=== PATIENT | male | born 1970 | race Caucasian/White ===

== ENCOUNTER 2016-12-04 16:39 | Inpatient (IN) | payer OTHER ==
[~2016-12-04] VITALS: Ht 175.3 cm; Wt 98.3 kg
[~2016-12-04 16:39] MED LIST: ASPI81 PO; INSNOV SQ
[2016-12-04] MEDS ORDERED: METO25 PO (17:04)
[2016-12-04] MEDS ORDERED: NORT10 PO (17:04)
[2016-12-04] MEDS ORDERED: ATOR40TA28 PO (17:04)
[2016-12-04] MEDS ORDERED: MIRALAX PO (17:04)
[2016-12-04] MEDS ORDERED: ACET-1953 PO (17:04)
[2016-12-04] MEDS ORDERED: DOCU100C19 PO (17:04)
[2016-12-04] MEDS ORDERED: HERB1CAP2 PO (17:04)
[2016-12-04] MEDS ORDERED: INSNOV SQ (17:04)
[2016-12-04] MEDS ORDERED: INSLAN SQ (17:04)
[2016-12-04] MEDS ORDERED: SODIUM CHLORIDE 0.9% 1,000 ML IV ONE ×2 (18:07→21:15)
[2016-12-04 18:16] LABS: BASOPHILS % (AUTO) 0.6 % (0.0-2.0); EOSINOPHILS % (AUTO) 1.1 % (1.0-6.0); HEMATOCRIT 42.3 % (41-53); LYMPHOCYTES # (AUTO) 1.7 K/uL (1.0-4.8); LYMPHOCYTES % (AUTO) 13.4 % (22.0-44.0); MEAN CORPUSCULAR HEMOGLOBIN 28.8 pg (26.0-34.0); MEAN CORPUSCULAR HGB CONC 33.1 G/dL (31.0-37.0); MEAN CORPUSCULAR VOLUME 87 fL (80-100); MONOCYTES # (AUTO) 0.9 K/uL (0.1-1.0); NEUTROPHILS # (AUTO) 9.8 K/uL (1.8-7.7); NEUTROPHILS % (AUTO) 77.9 % (40.0-70.0); PLATELET COUNT (AUTO) 222 K/uL (150-450); RED BLOOD CELL COUNT(AUTO) 4.87 MIL/uL (4.50-5.90); RED CELL DISTRIBUTION WIDTH 12.4 % (11.5-14.5); WHITE BLOOD COUNT (AUTO) 12.6 K/uL (4.5-11.0)
[2016-12-04 18:33] LABS: ALBUMIN 2.8 g/dL (3.4-5.0); BILIRUBIN,TOTAL 0.4 mg/dL (0.1-1.0); CALCIUM, TOTAL 8.8 mg/dL (8.8-10.5); CREATININE 1.64 mg/dL (0.60-1.30); POTASSIUM 4.4 mmol/L (3.5-5.1); TOTAL PROTEIN, SERUM 7.2 g/dL (6.4-8.2)
[2016-12-04] MEDS ORDERED: INSULIN REGULAR, HUMAN 100 UNITS/ML IVP ONE (19:15)
[2016-12-04] MEDS ORDERED: MAGNESIUM HYDROXIDE SUSPENSION 30 ML UDCUP PO PRN (21:15)
[2016-12-04] MEDS ORDERED: DEXTROSE 50%-WATER 25 GM/50 ML SYRINGE IVP PRN (21:15)
[2016-12-04] MEDS ORDERED: OxyCODONE HCL/ACETAMINOPHEN 5-325 MG TABLET PO PRN (21:15)
[2016-12-04 21:43] LABS: GLUCOSE,POINT OF CARE 299 MG/DL (70-110)
[2016-12-04] MEDS ORDERED: VANCOMYCIN HCL 1 GM/D5% WATER 200 ML IV ONE (22:00)
[2016-12-04 22:27] VITALS: BP 137/94
[2016-12-04] MEDS: INSULIN DETEMIR 100 UNITS/ML SQ SCH (22:45)
[2016-12-04] MEDS: MORPHINE SULFATE 2 MG/ML SYRINGE IVP PRN (22:46)
[2016-12-05] MEDS ORDERED: VANCOMYCIN HCL 1 GM/D5% WATER 200 ML IV ONE
[2016-12-05] MEDS: PIPERACILLIN/TAZO 3.375 GM/D5W 50 ML IV SCH ×5 (00:36→23:46)
[2016-12-05] MEDS: HEPARIN SODIUM,PORCINE 5,000 UNITS/ML VIAL SQ SCH ×4 (00:37→23:46)
[2016-12-05 04:53] VITALS: BP 142/87
[2016-12-05] MEDS: MORPHINE SULFATE 2 MG/ML SYRINGE IVP PRN (05:17)
[2016-12-05] MEDS: INSULIN ASPART 100 UNITS/ML SQ PRN ×4 (05:19→21:22)
[2016-12-05 06:42] LABS: BASOPHILS % (AUTO) 0.2 % (0.0-2.0); EOSINOPHILS % (AUTO) 1.1 % (1.0-6.0); HEMATOCRIT 39.4 % (41-53); HEMOGLOBIN 12.9 g/dL (13.5-17.5); LYMPHOCYTES # (AUTO) 1.5 K/uL (1.0-4.8); LYMPHOCYTES % (AUTO) 9.4 % (22.0-44.0); MEAN CORPUSCULAR HEMOGLOBIN 29.1 pg (26.0-34.0); MEAN CORPUSCULAR HGB CONC 32.8 G/dL (31.0-37.0); MEAN CORPUSCULAR VOLUME 89 fL (80-100); MONOCYTES # (AUTO) 1.1 K/uL (0.1-1.0); NEUTROPHILS # (AUTO) 12.9 K/uL (1.8-7.7); NEUTROPHILS % (AUTO) 82.3 % (40.0-70.0); PLATELET COUNT (AUTO) 198 K/uL (150-450); RED BLOOD CELL COUNT(AUTO) 4.44 MIL/uL (4.50-5.90); RED CELL DISTRIBUTION WIDTH 12.9 % (11.5-14.5); WHITE BLOOD COUNT (AUTO) 15.7 K/uL (4.5-11.0)
[2016-12-05 06:50] LABS: CALCIUM, TOTAL 8.2 mg/dL (8.8-10.5); CREATININE 1.56 mg/dL (0.60-1.30); POTASSIUM 4.8 mmol/L (3.5-5.1)
[2016-12-05 06:52] LABS: GLUCOSE,POINT OF CARE 437 MG/DL (70-110)
[2016-12-05 07:41] VITALS: BP 140/87
[2016-12-05] MEDS ORDERED: VANCOMYCIN HCL 1.5 GM in DEXTROSE 5%-WATER 250 ML IV SCH (08:00)
[2016-12-05] MEDS: PANTOPRAZOLE SODIUM 40 MG DR TABLET PO SCH (08:07)
[2016-12-05] MEDS: DOCUSATE SODIUM 100 MG CAPSULE PO SCH ×2 (08:07→20:42)
[2016-12-05 08:28] LABS: HEMOGLOBIN A1C 11.6 % (4.5-6.2)
[2016-12-05 08:32] LABS: ADD UA MICROSCOPIC YES; APPEARANCE,URINE CLEAR (CLEAR); GLUCOSE, URINE (UA) 500 mg/dL (NEGATIVE); KETONES,URINE TRACE mg/dL (NEGATIVE); LEUKOCYTE ESTERASE ,URINE NEGATIVE (NEGATIVE); OCCULT BLOOD,URINE MODERATE (NEGATIVE); PROTEIN,URINE SEE CONFIRM (NEGATIVE)
[2016-12-05 08:38] LABS: SULFOSALICYLIC ACID,URINE 3+ (Negative)
[2016-12-05 08:40] LABS: WBC,URINE None Seen /HPF (0-5)
[2016-12-05 08:42] LABS: COARSE GRANULAR CASTS,URINE 0-2 /LPF (None Seen); FINE GRANULAR CASTS,URINE 0-2 /LPF (None Seen); HYALINE CASTS, URINE 0-2 /LPF (None Seen)
[2016-12-05 11:54] VITALS: BP 121/84
[2016-12-05] MEDS: NYSTATIN/TRIAMCINOLONE 15 GM CREAM TP SCH (13:19)
[2016-12-05] MEDS: SILVER SULFADIAZINE 1% 25 GM CREAM TP SCH (13:19)
[2016-12-05] MEDS: ACETAMINOPHEN 325 MG TABLET PO PRN ×2 (13:30→20:42)
[2016-12-05 16:07] VITALS: BP 156/95
[2016-12-05] MEDS ORDERED: MAGNESIUM CITRATE 300 ML ORAL SOLUTION PO PRN (18:45)
[2016-12-05 18:56] LABS: GLUCOSE COMMENT 1 Received Meds; GLUCOSE,POINT OF CARE 310 MG/DL (70-110)
[2016-12-05 20:15] VITALS: BP 144/83
[2016-12-05] MEDS: VANCOMYCIN HCL 1.25 GM in DEXTROSE 5%-WATER 250 ML IV SCH (20:42)
[2016-12-05 21:22] LABS: GLUCOSE COMMENT 1 Received Meds; GLUCOSE,POINT OF CARE 289 MG/DL (70-110)
[2016-12-05] MEDS: INSULIN DETEMIR 100 UNITS/ML SQ SCH (21:22)
[2016-12-05 21:26] LABS: GLUCOSE,POINT OF CARE 338 MG/DL (70-110)
[2016-12-06] VITALS (7 sets, daily range): BP systolic 127–160; BP diastolic 79–98
[2016-12-06] MEDS: METOPROLOL TARTRATE 25 MG TABLET PO SCH ×3 (01:53→15:35)
[2016-12-06] MEDS: SODIUM CHLORIDE 0.9% 1,000 ML IV SCH (01:54)
[2016-12-06] MEDS: PIPERACILLIN/TAZO 3.375 GM/D5W 50 ML IV SCH ×3 (05:06→17:37)
[2016-12-06 05:57] LABS: GLUCOSE,POINT OF CARE 258 MG/DL (70-110)
[2016-12-06 06:50] LABS: ANION GAP 7 mmol/L (8-16); CALCIUM, TOTAL 8.1 mg/dL (8.8-10.5); CARBON DIOXIDE 28 mmol/L (22-29); CHLORIDE 97 mmol/L (98-107); CREATININE 1.14 mg/dL (0.60-1.30); GLOMERULAR FILTR. RATE CALC > 60 mL/min (>60); POTASSIUM 3.9 mmol/L (3.5-5.1); SODIUM SERUM 132 mmol/L (136-145); UREA NITROGEN, BLOOD 14 mg/dL (7-18)
[2016-12-06] MEDS: INSULIN ASPART 100 UNITS/ML SQ PRN ×4 (06:51→21:19)
[2016-12-06] MEDS: ACETAMINOPHEN 325 MG TABLET PO PRN ×2 (06:58→20:37)
[2016-12-06] MEDS: VANCOMYCIN HCL 1.25 GM in DEXTROSE 5%-WATER 250 ML IV SCH ×2 (08:56→21:18)
[2016-12-06] MEDS: PANTOPRAZOLE SODIUM 40 MG DR TABLET PO SCH (08:56)
[2016-12-06] MEDS: MORPHINE SULFATE 2 MG/ML SYRINGE IVP PRN (08:56)
[2016-12-06] MEDS: HEPARIN SODIUM,PORCINE 5,000 UNITS/ML VIAL SQ SCH ×2 (08:56→15:35)
[2016-12-06] MEDS: DOCUSATE SODIUM 100 MG CAPSULE PO SCH ×2 (08:56→21:18)
[2016-12-06] MEDS: SILVER SULFADIAZINE 1% 25 GM CREAM TP SCH (08:57)
[2016-12-06] MEDS: NYSTATIN/TRIAMCINOLONE 15 GM CREAM TP SCH (08:57)
[2016-12-06 11:52] LABS: GLUCOSE COMMENT 1 Received Meds; GLUCOSE,POINT OF CARE 230 MG/DL (70-110)
[2016-12-06 19:46] LABS: GLUCOSE COMMENT 1 Received Meds; GLUCOSE,POINT OF CARE 168 MG/DL (70-110)
[2016-12-06 20:57] LABS: GLUCOSE,POINT OF CARE 228 MG/DL (70-110)
[2016-12-06] MEDS: INSULIN DETEMIR 100 UNITS/ML SQ SCH (21:17)
[2016-12-06] MEDS ORDERED: 0.9% SODIUM CHLORIDE 10 ML SYRINGE IVP PRN (23:45)
[2016-12-06] MEDS ORDERED: DOCUSATE SODIUM 100 MG CAPSULE PO SCH (23:45)
[2016-12-06] MEDS ORDERED: OxyCODONE HCL/ACETAMINOPHEN 5-325 MG TABLET PO PRN (23:45)
[2016-12-06] MEDS ORDERED: ONDANSETRON HCL 4 MG/2 ML VIAL IVP PRN (23:45)
[2016-12-07] MEDS ORDERED: CEFTAROLINE 600 MG/D5W 250 ML IV SCH
[2016-12-07] MEDS: HEPARIN SODIUM,PORCINE 5,000 UNITS/ML VIAL SQ SCH ×4 (00:06→23:47)
[2016-12-07] MEDS: PIPERACILLIN/TAZO 3.375 GM/D5W 50 ML IV SCH ×5 (00:07→23:45)
[2016-12-07] MEDS: METOPROLOL TARTRATE 25 MG TABLET PO SCH ×4 (00:07→23:47)
[2016-12-07] MEDS ORDERED: SODIUM CHLORIDE 0.9% 500 ML IV ONE (00:11)
[2016-12-07 04:41] VITALS: BP 148/86
[2016-12-07] MEDS: INSULIN ASPART 100 UNITS/ML SQ PRN ×4 (05:32→20:16)
[2016-12-07] MEDS: SODIUM CHLORIDE 0.9% 1,000 ML IV SCH ×2 (05:33→23:45)
[2016-12-07 06:17] LABS: GLUCOSE,POINT OF CARE 275 MG/DL (70-110)
[2016-12-07 06:46] LABS: BASOPHILS % (AUTO) 0.1 % (0.0-2.0); EOSINOPHILS % (AUTO) 1.1 % (1.0-6.0); HEMATOCRIT 39.3 % (41-53); HEMOGLOBIN 12.8 g/dL (13.5-17.5); LYMPHOCYTES # (AUTO) 1.4 K/uL (1.0-4.8); LYMPHOCYTES % (AUTO) 7.9 % (22.0-44.0); MEAN CORPUSCULAR HGB CONC 32.7 G/dL (31.0-37.0); MEAN CORPUSCULAR VOLUME 89 fL (80-100); MONOCYTES # (AUTO) 1.4 K/uL (0.1-1.0); MONOCYTES % (AUTO) 8.1 % (2.0-9.0); NEUTROPHILS # (AUTO) 14.7 K/uL (1.8-7.7); NEUTROPHILS % (AUTO) 82.8 % (40.0-70.0); PLATELET COUNT (AUTO) 196 K/uL (150-450); RED BLOOD CELL COUNT(AUTO) 4.43 MIL/uL (4.50-5.90); RED CELL DISTRIBUTION WIDTH 12.6 % (11.5-14.5); WHITE BLOOD COUNT (AUTO) 17.8 K/uL (4.5-11.0)
[2016-12-07 07:24] LABS: ANION GAP 7 mmol/L (8-16); CARBON DIOXIDE 29 mmol/L (22-29); CHLORIDE 102 mmol/L (98-107); CREATININE 1.15 mg/dL (0.60-1.30); GLOMERULAR FILTR. RATE CALC > 60 mL/min (>60); POTASSIUM 3.8 mmol/L (3.5-5.1); SODIUM SERUM 138 mmol/L (136-145); UREA NITROGEN, BLOOD 14 mg/dL (7-18)
[2016-12-07 07:35] VITALS: BP 140/85
[2016-12-07] MEDS: VANCOMYCIN HCL 1 GM/D5% WATER 200 ML IV SCH ×3 (08:33→23:47)
[2016-12-07] MEDS: PANTOPRAZOLE SODIUM 40 MG DR TABLET PO SCH (08:33)
[2016-12-07] MEDS: DOCUSATE SODIUM 100 MG CAPSULE PO SCH ×2 (08:33→21:00)
[2016-12-07] MEDS: SILVER SULFADIAZINE 1% 25 GM CREAM TP SCH (08:33)
[2016-12-07] MEDS: NYSTATIN/TRIAMCINOLONE 15 GM CREAM TP SCH (08:33)
[2016-12-07] MEDS ORDERED: PANTOPRAZOLE SODIUM 40 MG/VIAL IVP SCH (09:00)
[2016-12-07 11:39] VITALS: BP 140/92
[2016-12-07 15:24] VITALS: BP 147/89
[2016-12-07] MEDS ORDERED: SODIUM CHLORIDE 0.9% 100 ML ONE (15:31)
[2016-12-07] MEDS ORDERED: IOVERSOL 350 MG/ML 150 ML VIAL ONE (15:31)
[2016-12-07 16:16] LABS: GLUCOSE,POINT OF CARE 230 MG/DL (70-110)
[2016-12-07] MEDS: ACETAMINOPHEN 325 MG TABLET PO PRN (17:37)
[2016-12-07 18:18] LABS: GLUCOSE COMMENT 1 Received Meds; GLUCOSE,POINT OF CARE 160 MG/DL (70-110)
[2016-12-07 20:06] VITALS: BP 150/93
[2016-12-07] MEDS: INSULIN DETEMIR 100 UNITS/ML SQ SCH (20:16)
[2016-12-07 23:31] VITALS: BP 154/88
[2016-12-08] MEDS: SODIUM CHLORIDE 0.9% 1,000 ML IV SCH (03:45)
[2016-12-08 04:46] LABS: GLUCOSE COMMENT 1 Received Meds; GLUCOSE,POINT OF CARE 207 MG/DL (70-110)
[2016-12-08 04:50] VITALS: BP 144/87
[2016-12-08] MEDS: PIPERACILLIN/TAZO 3.375 GM/D5W 50 ML IV SCH ×3 (05:48→20:15)
[2016-12-08] MEDS: INSULIN ASPART 100 UNITS/ML SQ PRN ×4 (05:52→21:31)
[2016-12-08 06:53] LABS: ANION GAP 8 mmol/L (8-16); CALCIUM, TOTAL 7.9 mg/dL (8.8-10.5); CARBON DIOXIDE 27 mmol/L (22-29); CHLORIDE 102 mmol/L (98-107); CREATININE 1.03 mg/dL (0.60-1.30); GLOMERULAR FILTR. RATE CALC > 60 mL/min (>60); POTASSIUM 3.4 mmol/L (3.5-5.1); SODIUM SERUM 137 mmol/L (136-145); UREA NITROGEN, BLOOD 12 mg/dL (7-18)
[2016-12-08 07:28] VITALS: BP 124/73
[2016-12-08] MEDS: DOCUSATE SODIUM 100 MG CAPSULE PO SCH ×3 (09:00→20:15)
[2016-12-08] MEDS: PANTOPRAZOLE SODIUM 40 MG DR TABLET PO SCH (09:05)
[2016-12-08] MEDS: METOPROLOL TARTRATE 25 MG TABLET PO SCH ×2 (09:06→17:04)
[2016-12-08] MEDS: HEPARIN SODIUM,PORCINE 5,000 UNITS/ML VIAL SQ SCH ×2 (09:06→17:04)
[2016-12-08] MEDS: NYSTATIN/TRIAMCINOLONE 15 GM CREAM TP SCH (09:09)
[2016-12-08] MEDS: SILVER SULFADIAZINE 1% 25 GM CREAM TP SCH (09:09)
[2016-12-08] MEDS: VANCOMYCIN HCL 1 GM/D5% WATER 200 ML IV SCH ×2 (09:11→17:04)
[2016-12-08] MEDS ORDERED: POTASSIUM CHLORIDE 20 MEQ ER TABLET PO PRN (11:30)
[2016-12-08] MEDS ORDERED: POTASSIUM CHL 10 MEQ/WATER 50 ML IV PRN (11:30)
[2016-12-08 12:23] LABS: GLUCOSE COMMENT 1 Received Meds; GLUCOSE,POINT OF CARE 194 MG/DL (70-110)
[2016-12-08 12:49] VITALS: BP 142/82
[2016-12-08 16:10] VITALS: BP 138/87
[2016-12-08 17:26] LABS: GLUCOSE COMMENT 1 Received Meds; GLUCOSE,POINT OF CARE 289 MG/DL (70-110)
[2016-12-08] MEDS: MORPHINE SULFATE 2 MG/ML SYRINGE IVP PRN ×2 (18:05→21:58)
[2016-12-08] MEDS ORDERED: AZITHROMYCIN 250 MG TABLET PO ONE (20:00)
[2016-12-08 20:35] VITALS: BP 137/83
[2016-12-08] MEDS: INSULIN DETEMIR 100 UNITS/ML SQ SCH (21:30)
[2016-12-08 22:02] LABS: GLUCOSE,POINT OF CARE 294 MG/DL (70-110)
[2016-12-08 22:07] LABS: GLUCOSE COMMENT 1 Received Meds; GLUCOSE,POINT OF CARE 240 MG/DL (70-110)
[2016-12-08 23:50] VITALS: BP 153/95
[2016-12-09] MEDS: VANCOMYCIN HCL 1 GM/D5% WATER 200 ML IV SCH ×3 (00:27→16:00)
[2016-12-09] MEDS: METOPROLOL TARTRATE 25 MG TABLET PO SCH ×3 (00:27→16:20)
[2016-12-09] MEDS: HEPARIN SODIUM,PORCINE 5,000 UNITS/ML VIAL SQ SCH ×3 (00:28→16:19)
[2016-12-09] MEDS: SODIUM CHLORIDE 0.9% 1,000 ML IV SCH (00:29)
[2016-12-09] MEDS: PIPERACILLIN/TAZO 3.375 GM/D5W 50 ML IV SCH ×5 (02:02→18:12)
[2016-12-09 04:35] VITALS: BP 150/92
[2016-12-09] MEDS: INSULIN ASPART 100 UNITS/ML SQ PRN ×4 (06:08→20:46)
[2016-12-09 06:22] LABS: BASOPHILS % (AUTO) 0.1 % (0.0-2.0); EOSINOPHILS % (AUTO) 5.5 % (1.0-6.0); HEMATOCRIT 38.5 % (41-53); HEMOGLOBIN 12.5 g/dL (13.5-17.5); LYMPHOCYTES # (AUTO) 1.6 K/uL (1.0-4.8); LYMPHOCYTES % (AUTO) 14.5 % (22.0-44.0); MEAN CORPUSCULAR HEMOGLOBIN 28.6 pg (26.0-34.0); MEAN CORPUSCULAR HGB CONC 32.3 G/dL (31.0-37.0); MEAN CORPUSCULAR VOLUME 89 fL (80-100); MONOCYTES # (AUTO) 1.2 K/uL (0.1-1.0); MONOCYTES % (AUTO) 10.8 % (2.0-9.0); NEUTROPHILS # (AUTO) 7.7 K/uL (1.8-7.7); NEUTROPHILS % (AUTO) 69.1 % (40.0-70.0); PLATELET COUNT (AUTO) 258 K/uL (150-450); RED BLOOD CELL COUNT(AUTO) 4.35 MIL/uL (4.50-5.90); RED CELL DISTRIBUTION WIDTH 12.9 % (11.5-14.5); WHITE BLOOD COUNT (AUTO) 11.1 K/uL (4.5-11.0)
[2016-12-09 07:12] LABS: CALCIUM, TOTAL 8.4 mg/dL (8.8-10.5); CHLORIDE 103 mmol/L (98-107); POTASSIUM 4.1 mmol/L (3.5-5.1)
[2016-12-09 07:13] LABS: ANION GAP 9 mmol/L (8-16); CARBON DIOXIDE 27 mmol/L (22-29); CREATININE 1.14 mg/dL (0.60-1.30); GLOMERULAR FILTR. RATE CALC > 60 mL/min (>60); SODIUM SERUM 139 mmol/L (136-145); UREA NITROGEN, BLOOD 12 mg/dL (7-18)
[2016-12-09 07:45] VITALS: BP 156/100
[2016-12-09 08:00] LABS: PROCALCITONIN (PCT) 0.14 ng/mL (<0.50)
[2016-12-09] MEDS ORDERED: GADOBUTROL 1 MMOL/ML 10 ML VIAL IVP ONE (08:21)
[2016-12-09 08:36] LABS: GLUCOSE COMMENT 1 Received Meds; GLUCOSE,POINT OF CARE 175 MG/DL (70-110)
[2016-12-09] MEDS: PANTOPRAZOLE SODIUM 40 MG DR TABLET PO SCH (09:58)
[2016-12-09] MEDS: DOCUSATE SODIUM 100 MG CAPSULE PO SCH ×2 (09:58→20:42)
[2016-12-09] MEDS: NYSTATIN/TRIAMCINOLONE 15 GM CREAM TP SCH (09:58)
[2016-12-09] MEDS: SILVER SULFADIAZINE 1% 25 GM CREAM TP SCH (09:58)
[2016-12-09] MEDS: MORPHINE SULFATE 2 MG/ML SYRINGE IVP PRN (11:47)
[2016-12-09 12:00] VITALS: BP 132/88
[2016-12-09] MEDS: AZITHROMYCIN 250 MG TABLET PO SCH (14:28)
[2016-12-09] MEDS: OxyCODONE HCL/ACETAMINOPHEN 5-325 MG TABLET PO PRN ×2 (14:34→20:45)
[2016-12-09 16:04] VITALS: BP 114/73
[2016-12-09 17:42] LABS: GLUCOSE COMMENT 1 Received Meds; GLUCOSE,POINT OF CARE 319 MG/DL (70-110)
[2016-12-09 18:22] LABS: GLUCOSE COMMENT 1 Received Meds; GLUCOSE,POINT OF CARE 233 MG/DL (70-110)
[2016-12-09 19:33] VITALS: BP 127/80
[2016-12-09] MEDS: INSULIN DETEMIR 100 UNITS/ML SQ SCH (20:46)
[2016-12-09 23:22] VITALS: BP 123/74
[2016-12-10] MEDS: PIPERACILLIN/TAZO 3.375 GM/D5W 50 ML IV SCH ×5 (00:27→23:15)
[2016-12-10] MEDS: HEPARIN SODIUM,PORCINE 5,000 UNITS/ML VIAL SQ SCH ×4 (00:27→23:15)
[2016-12-10] MEDS: METOPROLOL TARTRATE 25 MG TABLET PO SCH ×4 (00:27→23:15)
[2016-12-10] MEDS: VANCOMYCIN HCL 1 GM/D5% WATER 200 ML IV SCH ×2 (00:28→08:07)
[2016-12-10 04:39] VITALS: BP 146/92
[2016-12-10] MEDS: INSULIN ASPART 100 UNITS/ML SQ PRN ×3 (05:45→20:28)
[2016-12-10 06:27] LABS: GLUCOSE,POINT OF CARE 148 MG/DL (70-110)
[2016-12-10 07:43] LABS: CALCIUM, TOTAL 8.2 mg/dL (8.8-10.5); CREATININE 1.28 mg/dL (0.60-1.30); POTASSIUM 3.9 mmol/L (3.5-5.1)
[2016-12-10] MEDS: AZITHROMYCIN 250 MG TABLET PO SCH (08:06)
[2016-12-10] MEDS: PANTOPRAZOLE SODIUM 40 MG DR TABLET PO SCH (08:07)
[2016-12-10] MEDS: SILVER SULFADIAZINE 1% 25 GM CREAM TP SCH (08:08)
[2016-12-10] MEDS: DOCUSATE SODIUM 100 MG CAPSULE PO SCH ×2 (08:08→20:27)
[2016-12-10] MEDS: NYSTATIN/TRIAMCINOLONE 15 GM CREAM TP SCH (08:08)
[2016-12-10 08:10] VITALS: BP 121/64
[2016-12-10 11:17] LABS: GLUCOSE,POINT OF CARE 201 MG/DL (70-110)
[2016-12-10] MEDS: SODIUM CHLORIDE 0.9% 1,000 ML IV SCH ×2 (11:34→18:22)
[2016-12-10] MEDS: MORPHINE SULFATE 2 MG/ML SYRINGE IVP PRN (11:42)
[2016-12-10 11:46] VITALS: BP 131/65
[2016-12-10 12:17] LABS: GLUCOSE COMMENT 1 Received Meds; GLUCOSE,POINT OF CARE 240 MG/DL (70-110)
[2016-12-10 14:02] LABS: BASOPHILS % (AUTO) 0.3 % (0.0-2.0); EOSINOPHILS % (AUTO) 5.5 % (1.0-6.0); HEMATOCRIT 37.9 % (41-53); HEMOGLOBIN 12.6 g/dL (13.5-17.5); LYMPHOCYTES # (AUTO) 1.5 K/uL (1.0-4.8); LYMPHOCYTES % (AUTO) 14.6 % (22.0-44.0); MEAN CORPUSCULAR HEMOGLOBIN 29.2 pg (26.0-34.0); MEAN CORPUSCULAR HGB CONC 33.1 G/dL (31.0-37.0); MEAN CORPUSCULAR VOLUME 88 fL (80-100); MONOCYTES # (AUTO) 0.8 K/uL (0.1-1.0); MONOCYTES % (AUTO) 7.6 % (2.0-9.0); NEUTROPHILS # (AUTO) 7.6 K/uL (1.8-7.7); PLATELET COUNT (AUTO) 302 K/uL (150-450); RED BLOOD CELL COUNT(AUTO) 4.29 MIL/uL (4.50-5.90); RED CELL DISTRIBUTION WIDTH 12.7 % (11.5-14.5); WHITE BLOOD COUNT (AUTO) 10.5 K/uL (4.5-11.0)
[2016-12-10 14:32] LABS: ANION GAP 7 mmol/L (8-16); CARBON DIOXIDE 28 mmol/L (22-29); CHLORIDE 103 mmol/L (98-107); POTASSIUM 4.5 mmol/L (3.5-5.1); SODIUM SERUM 138 mmol/L (136-145)
[2016-12-10 14:33] LABS: CALCIUM, TOTAL 8.4 mg/dL (8.8-10.5); CREATININE 1.22 mg/dL (0.60-1.30); GLOMERULAR FILTR. RATE CALC > 60 mL/min (>60); UREA NITROGEN, BLOOD 14 mg/dL (7-18)
[2016-12-10 17:48] VITALS: BP 157/102
[2016-12-10 18:41] LABS: GLUCOSE COMMENT 1 Received Meds; GLUCOSE,POINT OF CARE 285 MG/DL (70-110)
[2016-12-10 20:04] VITALS: BP 149/91
[2016-12-10] MEDS: INSULIN DETEMIR 100 UNITS/ML SQ SCH (20:29)
[2016-12-10 20:36] LABS: GLUCOSE COMMENT 1 Received Meds; GLUCOSE,POINT OF CARE 289 MG/DL (70-110)
[2016-12-10 23:21] VITALS: BP 148/95
[2016-12-11] MEDS: SODIUM CHLORIDE 0.9% 1,000 ML IV SCH (02:20)
[2016-12-11 04:13] VITALS: BP 141/95
[2016-12-11] MEDS: PIPERACILLIN/TAZO 3.375 GM/D5W 50 ML IV SCH ×2 (05:58→11:16)
[2016-12-11] MEDS: INSULIN ASPART 100 UNITS/ML SQ PRN ×2 (06:00→11:31)
[2016-12-11 06:12] LABS: GLUCOSE COMMENT 1 Received Meds; GLUCOSE,POINT OF CARE 124 MG/DL (70-110)
[2016-12-11 07:37] LABS: ANION GAP 6 mmol/L (8-16); CALCIUM, TOTAL 8.3 mg/dL (8.8-10.5); CARBON DIOXIDE 29 mmol/L (22-29); CHLORIDE 106 mmol/L (98-107); GLOMERULAR FILTR. RATE CALC > 60 mL/min (>60); POTASSIUM 4.4 mmol/L (3.5-5.1); SODIUM SERUM 141 mmol/L (136-145); UREA NITROGEN, BLOOD 14 mg/dL (7-18)
[2016-12-11 07:44] VITALS: BP 133/94
[2016-12-11] MEDS ORDERED: VANCOMYCIN HCL 1 GM/D5% WATER 200 ML IV SCH (08:00)
[2016-12-11] MEDS: METOPROLOL TARTRATE 25 MG TABLET PO SCH (08:08)
[2016-12-11] MEDS: AZITHROMYCIN 250 MG TABLET PO SCH (08:09)
[2016-12-11] MEDS: DOCUSATE SODIUM 100 MG CAPSULE PO SCH (08:09)
[2016-12-11] MEDS: NYSTATIN/TRIAMCINOLONE 15 GM CREAM TP SCH (08:09)
[2016-12-11] MEDS: SILVER SULFADIAZINE 1% 25 GM CREAM TP SCH (08:09)
[2016-12-11] MEDS: HEPARIN SODIUM,PORCINE 5,000 UNITS/ML VIAL SQ SCH (08:09)
[2016-12-11] MEDS: PANTOPRAZOLE SODIUM 40 MG DR TABLET PO SCH (08:09)
[2016-12-11 11:22] VITALS: BP 143/87
[2016-12-11 12:01] LABS: GLUCOSE COMMENT 1 Received Meds; GLUCOSE,POINT OF CARE 170 MG/DL (70-110)
[2016-12-12 15:14] LABS: ORGANISM ID Not indicated.
== END 2016-12-11 15:10 | disposition home or self-care (01) | DRG 139 ==
LOC: EMS 16:41 → 6S 21:00 → 6N 21:00
PROVIDERS: ADMIT Internal Medicine; ATTEND Internal Medicine
DX: J18.9 Pneumonia, unspecified organism (principal); N17.9 Acute kidney failure, unspecified; E44.0 Moderate protein-calorie malnutrition; L03.115 Cellulitis of right lower limb; L03.116 Cellulitis of left lower limb; I10 Essential (primary) hypertension; E11.65 Type 2 diabetes mellitus with hyperglycemia; F15.10 Other stimulant abuse, uncomplicated; K59.00 Constipation, unspecified; R19.7 Diarrhea, unspecified; S81.801A Unspecified open wound, right lower leg, initial encounter; Z79.82 Long term (current) use of aspirin; Z79.899 Other long term (current) drug therapy; Z79.4 Long term (current) use of insulin; Z91.19 Patient's noncompliance with other medical treatment and regimen; Z68.32 Body mass index [BMI] 32.0-32.9, adult; X58.XXXA Exposure to other specified factors, initial encounter; Y93.89 Activity, other specified; Y92.89 Other specified places as the place of occurrence of the external cause; Y99.8 Other external cause status
CPT/HCPCS: 73720; 74010; 74177; 82962; 83036; 84132; 84145; 87045; 87070; 87205; 87449; 87899; 89055; 93970; 96374; 99285; A9585; J0712; J1644; J1815; J2270; J2543; J3370; J7030; J7040; J7050; J7060

== ENCOUNTER 2017-01-13 15:07 | Emergency (ER) | payer OTHER ==
[~2017-01-13] VITALS: Ht 175.3 cm; Wt 102.3 kg
[~2017-01-13 15:07] MED LIST changes: +ACET-1953 PO; +ATOR40TA28 PO; +DOCU100C19 PO; +HERB1CAP2 PO; +INSLAN SQ; +METO25 PO; +MIRALAX PO; +NORT10 PO
[2017-01-13 15:27] VITALS: BP 199/114
== END 2017-01-13 17:45 | disposition left against medical advice (07) ==
LOC: EMS 15:08
DX: R25.2 Cramp and spasm (principal); E11.9 Type 2 diabetes mellitus without complications; I10 Essential (primary) hypertension; R10.9 Unspecified abdominal pain; Z76.5 Malingerer [conscious simulation]; Z79.4 Long term (current) use of insulin
CPT/HCPCS: 99283